=== PATIENT | male | born 1965 | race Caucasian/White ===

== ENCOUNTER → 2016-10-10 | Outpatient (CLI) | payer OTHER ==
[~2016-10-10] VITALS: Ht 182.9 cm; Wt 122.9 kg
[~2016-10-10] MED LIST: AMOXICILLIN875 MG PO; BACTRIM DS TAB1 EACH PO; BASAGLAR SC; CLINDAMYCIN HC300 MG PO; FENOFIBRATE160 MG PO; FLOMAX 0.4 MG0.4 MG PO; IBUPROFEN800 MG PO; KEFLEX500 MG PO; LANTUS SOL100 UNIT/1 SQ; LEVAQUIN750 MG PO; LISINOPRIL-HCT1 EAC2 PO; LOVENOX SY40 MG/0.4 SQ; METFORMIN HCL500 MG PO; NOVOLIN N100 UNIT/1 SQ; PERCOCET 10-321 EACH PO; PRAVASTATIN SOD40 MG PO; VITAMIN C 500500 MG PO; VITAMIN D250000 UNIT PO; ZOFRAN4 MG PO
[2016-10-10 10:04] LABS: HEMOGLOBIN 13.6 gm/dl (14.0-17.5); RED BLOOD COUNT 4.84 M/UL (4.20-5.50); WHITE BLOOD COUNT 7.1 K/UL (4.5-11.0)
[2016-10-10 10:24] LABS: BUN/CREATININE RATIO 27 (0-10)
== END ==
LOC: OPSV2 09:00
PROVIDERS: Orthopaedic Surgery
DX: Z01.812 Encounter for preprocedural laboratory examination (principal); E11.69 Type 2 diabetes mellitus with other specified complication; M86.9 Osteomyelitis, unspecified; Z79.84 Long term (current) use of oral hypoglycemic drugs
CPT/HCPCS: 36415; 80048; 85025

== ENCOUNTER → 2016-10-11 | Day surgery (SDC) | payer OTHER | END | disposition home or self-care (01) | LOC: UNDOADMIN 11:18 → ZOBSOF 11:18 → OR 11:41 → EDSTATUS 17:30 | PROVIDERS: Orthopaedic Surgery | PROC: 0Y6S0Z1 Detachment at Left 2nd Toe, High, Open Approach (ICD-10-PCS; principal; 2016-10-11 13:15) | DX: E11.69 Type 2 diabetes mellitus with other specified complication (principal); M86.8X7 Other osteomyelitis, ankle and foot; N40.0 Benign prostatic hyperplasia without lower urinary tract symptoms; M19.90 Unspecified osteoarthritis, unspecified site; Z87.891 Personal history of nicotine dependence; Z80.51 Family history of malignant neoplasm of kidney; Z82.49 Family history of ischemic heart disease and other diseases of the circulatory system; Z83.3 Family history of diabetes mellitus; Z79.1 Long term (current) use of non-steroidal anti-inflammatories (NSAID); Z79.4 Long term (current) use of insulin; Z79.899 Other long term (current) drug therapy; Z90.89 Acquired absence of other organs; Z89.412 Acquired absence of left great toe | CPT/HCPCS: 82962; J2250; J3010; J7030; J7120 ==

== ENCOUNTER 2017-04-03 08:57 | Day surgery (SDC) | payer OTHER ==
[~2017-04-03] VITALS: Ht 182.9 cm; Wt 117.0 kg
[~2017-04-03 08:57] MED LIST changes: -CLINDAMYCIN HC300 MG PO; -LOVENOX SY40 MG/0.4 SQ; -NOVOLIN N100 UNIT/1 SQ; -PERCOCET 10-321 EACH PO; -VITAMIN C 500500 MG PO; -ZOFRAN4 MG PO
[2017-04-03] MEDS ORDERED: NOVOLIN N100 UNIT/1 SQ (10:34)
[2017-04-04 08:52] LABS: BUN/CREATININE RATIO 20 (0-10)
[2017-04-04] MEDS ORDERED: LOVENOX SY40 MG/0.4 SQ (12:51)
[2017-04-04] MEDS ORDERED: VITAMIN C 500500 MG PO (12:52)
[2017-04-04] MEDS ORDERED: CLINDAMYCIN HC300 MG PO (12:53)
[2017-04-04] MEDS ORDERED: ZOFRAN4 MG PO (12:53)
[2017-04-04] MEDS ORDERED: PERCOCET 10-321 EACH PO (12:54)
== END 2017-04-04 14:50 | disposition home or self-care (01) ==
LOC: OR 08:57 → MED SURG 4 18:10 → OR 04-04 14:50
PROVIDERS: Emergency Medicine; Podiatrist Foot & Ankle Surgery
PROC: 0L8V0ZZ Division of Right Foot Tendon, Open Approach (ICD-10-PCS; 2017-04-03)
PROC: 0JBR0ZZ Excision of Left Foot Subcutaneous Tissue and Fascia, Open Approach (ICD-10-PCS; 2017-04-03)
PROC: 0QBL0ZZ Excision of Right Tarsal, Open Approach (ICD-10-PCS; principal; 2017-04-03 10:30)
PROC: 0SGK0KZ Fusion of Right Tarsometatarsal Joint with Nonautologous Tissue Substitute, Open Approach (ICD-10-PCS; 2017-04-03 10:30)
PROC: 0SGH0JZ Fusion of Right Tarsal Joint with Synthetic Substitute, Open Approach (ICD-10-PCS; 2017-04-03 10:30)
PROC: 0SGH0JZ Fusion of Right Tarsal Joint with Synthetic Substitute, Open Approach (ICD-10-PCS; 2017-04-03 10:30)
PROC: 0YQM0ZZ Repair Right Foot, Open Approach (ICD-10-PCS; 2017-04-03 10:30)
DX: M21.6X1 Other acquired deformities of right foot (principal); M21.961 Unspecified acquired deformity of right lower leg; M20.41 Other hammer toe(s) (acquired), right foot; L97.819 Non-pressure chronic ulcer of other part of right lower leg with unspecified severity; E11.40 Type 2 diabetes mellitus with diabetic neuropathy, unspecified; E11.9 Type 2 diabetes mellitus without complications; E11.42 Type 2 diabetes mellitus with diabetic polyneuropathy; M81.0 Age-related osteoporosis without current pathological fracture; I10 Essential (primary) hypertension; E55.9 Vitamin D deficiency, unspecified; E78.2 Mixed hyperlipidemia; Z87.891 Personal history of nicotine dependence; Z79.52 Long term (current) use of systemic steroids; Z79.899 Other long term (current) drug therapy
CPT/HCPCS: 36415; 73630; 76000; 80048; 82962; 87070; 87077; 87186; 87205; C1713; J0690; J1650; J1815; J2250; J2405; J2795; J3010; J3370; J7030; J7120

== ENCOUNTER → 2020-07-18 | Outpatient (CLI) | payer MEDICARE, OTHER ==
[~2020-07-18] VITALS: Ht 182.9 cm; Wt 103.9 kg
[~2020-07-18] MED LIST changes: +ASPIRIN EC81 MG PO; +ATORVASTATIN CA20 MG PO; +CLEOCIN HCL300 MG PO; +CLINDAMYCIN HC300 MG PO; +CLOPIDOGREL75 MG PO; +COZAAR 25MG TAB25 MG PO; +CUBICIN 500 MG500 MG IV; +FOSAMAX 10 MG T10 MG PO; +HUMALOG 10100 UNITS/ SC; +HYDROCHLOROTHIA25 MG PO; +LANTUS INS100 UTS/M1 SC; +LEVOFLOXACIN250 MG PO; +LOPRESSOR 25 MG25 MG PO; +LOVENOX SY40 MG/0.4 SQ; +METOPROLOL TART25 MG PO; +NICOTINE PATCH1 EAC1 TD; +NOVOLIN N100 UNIT/1 SQ; +NOVOLOG 10100 UNITS1 INJ; +NOVOLOG FL100 UNIT/1 INJ; +PANTOPRAZOLE SO40 MG PO; +PERCOCET 10-321 EACH PO; +PERCOCET 5/325 T1 EA PO; +PRAVACHOL40 MG PO; +PRINIVIL20 MG PO; +TRESIBA FL100 UNIT/1 SQ; +VANCOCIN IV 11000 MG IV; +VANCOMYCIN2 GM/5001 IV; +VITAMIN C 500500 MG PO; +ZOFRAN4 MG PO
[2020-07-18 11:47] LABS: BUN/CREATININE RATIO 31 (0-10)
== END ==
LOC: OPSV 09:00
PROVIDERS: Nurse Practitioner Family
DX: M86.9 Osteomyelitis, unspecified (principal); E11.621 Type 2 diabetes mellitus with foot ulcer; L97.522 Non-pressure chronic ulcer of other part of left foot with fat layer exposed; E11.618 Type 2 diabetes mellitus with other diabetic arthropathy
CPT/HCPCS: 80048; 82550; J0878

== ENCOUNTER → 2020-07-25 | Outpatient (CLI) | payer MEDICARE, OTHER ==
[2020-07-25 10:49] LABS: BUN/CREATININE RATIO 32 (0-10)
== END ==
LOC: OPSV 09:00
PROVIDERS: Nurse Practitioner Family
DX: M86.9 Osteomyelitis, unspecified (principal); E11.621 Type 2 diabetes mellitus with foot ulcer; L97.522 Non-pressure chronic ulcer of other part of left foot with fat layer exposed; E11.618 Type 2 diabetes mellitus with other diabetic arthropathy
CPT/HCPCS: 80048; 82550

== ENCOUNTER → 2020-07-28 | Outpatient (CLI) | payer MEDICARE, OTHER | LOC: WCC 08:22 | DX: E11.621 Type 2 diabetes mellitus with foot ulcer (principal); L97.515 Non-pressure chronic ulcer of other part of right foot with muscle involvement without evidence of necrosis; L97.522 Non-pressure chronic ulcer of other part of left foot with fat layer exposed; E11.618 Type 2 diabetes mellitus with other diabetic arthropathy; E11.51 Type 2 diabetes mellitus with diabetic peripheral angiopathy without gangrene; E11.69 Type 2 diabetes mellitus with other specified complication; M86.9 Osteomyelitis, unspecified; I10 Essential (primary) hypertension; I25.2 Old myocardial infarction; Z89.412 Acquired absence of left great toe; Z95.5 Presence of coronary angioplasty implant and graft; Z79.4 Long term (current) use of insulin ==

== ENCOUNTER 2020-08-02 16:21 | Inpatient (IN) | payer MEDICARE, OTHER ==
[~2020-08-02] VITALS: Ht 182.9 cm; Wt 111.1 kg
[2020-08-02 18:24] LABS: HEMOGLOBIN 12.6 gm/dl (14.0-17.5); RED BLOOD COUNT 4.68 M/UL (4.20-5.50); WHITE BLOOD COUNT 8.4 K/UL (4.5-11.0)
[2020-08-02 18:39] LABS: BUN/CREATININE RATIO 27 (0-10)
[2020-08-03 06:10] LABS: HEMOGLOBIN 11.7 gm/dl (14.0-17.5); RED BLOOD COUNT 4.22 M/UL (4.20-5.50)
[2020-08-03 06:25] LABS: WHITE BLOOD COUNT 5.7 K/UL (4.5-11.0)
[2020-08-03 07:24] LABS: BUN/CREATININE RATIO 20 (0-10)
[2020-08-03 08:13] LABS: ACINETOBACTER BAUMANNII Not Detected (Negative); CANDIDA ALBICANS Not Detected (Negative); CANDIDA KRUSEI Not Detected (Negative); CANDIDA TROPICALIS Not Detected (Negative); ENTEROCOCCUS Not Detected (Negative); ESCHERICHIA COLI Not Detected (Negative); HAEMOPHILUS INFLUENZAE Not Detected (Negative); KLEBSIELLA OXYTOCA Not Detected (Negative); KLEBSIELLA PNEUMONIAE Not Detected (Negative); KPC-CARBAPENEM-RESISTANCE GENE Not Detected (Negative); PROTEUS Not Detected (Negative); PSEUDOMONAS AERUGINOSA Not Detected (Negative); STAPHYLOCOCCUS Not Detected (Negative); STAPHYLOCOCCUS AUREUS Not Detected (Negative); STREP AGALACTIAE (GROUP B) Not Detected (Negative); STREP PYOGENES (GROUP A) Not Detected (Negative); STREPTOCOCCUS Not Detected (Negative); mecA (METHICILLIN RESIST GENE Not Detected (Negative); vanA/B (VANCOMYCIN RESIST GENE Not Detected (Negative)
[2020-08-03 09:36] LABS: SERRATIA MARCESANS DETECTED (Negative)
[2020-08-04 04:49] LABS: HEMOGLOBIN 11.2 gm/dl (14.0-17.5); RED BLOOD COUNT 4.15 M/UL (4.20-5.50)
[2020-08-04 04:57] LABS: WHITE BLOOD COUNT 3.7 K/UL (4.5-11.0)
[2020-08-04 05:09] LABS: BUN/CREATININE RATIO 22 (0-10)
[2020-08-05 05:29] LABS: HEMOGLOBIN 11.4 gm/dl (14.0-17.5); RED BLOOD COUNT 4.21 M/UL (4.20-5.50); WHITE BLOOD COUNT 4.4 K/UL (4.5-11.0)
[2020-08-05 05:39] LABS: BUN/CREATININE RATIO 18 (0-10)
[2020-08-06 05:24] LABS: HEMOGLOBIN 12.2 gm/dl (14.0-17.5); RED BLOOD COUNT 4.48 M/UL (4.20-5.50); WHITE BLOOD COUNT 5.1 K/UL (4.5-11.0)
[2020-08-06 05:48] LABS: BUN/CREATININE RATIO 20 (0-10)
--- NOTE | 2020-08-06 17:58 | NUR ---
08/05/20 1400 SPOKE WITH A JACKIE RN PER MD REQUEST RE: BLOOD DRAW FROM PICC LINE IN RIGHT UPPER ARM. SHE STATES SHE HAS NOT DRAWN ANY BLOOD FROM THE PICC LINE IN THE LAST 2 DAYS OF CARING FOR PATIENT. MADE AWARE
[2020-08-07 05:46] LABS: HEMOGLOBIN 10.9 gm/dl (14.0-17.5); RED BLOOD COUNT 4.05 M/UL (4.20-5.50); WHITE BLOOD COUNT 5.4 K/UL (4.5-11.0)
[2020-08-07 06:02] LABS: BUN/CREATININE RATIO 26 (0-10)
[2020-08-08] MEDS ORDERED: ASPIRIN EC81 MG PO (09:59)
== END 2020-08-08 14:06 | disposition home or self-care (01) | DRG 854 ==
LOC: ER1 16:21 → MED SURG 4 20:45 → CDU 20:45 → MED SURG 4 21:59
PROVIDERS: Family Medicine; Physician Assistant; Physician Assistant Medical; ADMIT Internal Medicine
PROC: 0QTN0ZZ Resection of Right Metatarsal, Open Approach (ICD-10-PCS; principal; 2020-08-06)
PROC: 0JBQ0ZZ Excision of Right Foot Subcutaneous Tissue and Fascia, Open Approach (ICD-10-PCS; 2020-08-06)
PROC: 0HRMXK3 Replacement of Right Foot Skin with Nonautologous Tissue Substitute, Full Thickness, External Approach (ICD-10-PCS; 2020-08-06)
PROC: 0HBRXZZ Excision of Toe Nail, External Approach (ICD-10-PCS; 2020-08-06)
PROC: 0HBRXZZ Excision of Toe Nail, External Approach (ICD-10-PCS; 2020-08-06)
PROC: 0HBRXZZ Excision of Toe Nail, External Approach (ICD-10-PCS; 2020-08-06)
PROC: 0HBRXZZ Excision of Toe Nail, External Approach (ICD-10-PCS; 2020-08-06)
PROC: 0HBRXZZ Excision of Toe Nail, External Approach (ICD-10-PCS; 2020-08-06)
DX: A41.53 Sepsis due to Serratia (principal); M86.171 Other acute osteomyelitis, right ankle and foot; E11.52 Type 2 diabetes mellitus with diabetic peripheral angiopathy with gangrene; I96 Gangrene, not elsewhere classified; L03.115 Cellulitis of right lower limb; Z20.822 Contact with and (suspected) exposure to COVID-19; E11.69 Type 2 diabetes mellitus with other specified complication; B96.89 Other specified bacterial agents as the cause of diseases classified elsewhere; E11.610 Type 2 diabetes mellitus with diabetic neuropathic arthropathy; I25.5 Ischemic cardiomyopathy; R91.1 Solitary pulmonary nodule; I25.10 Atherosclerotic heart disease of native coronary artery without angina pectoris; J44.9 Chronic obstructive pulmonary disease, unspecified; E11.40 Type 2 diabetes mellitus with diabetic neuropathy, unspecified; E66.01 Morbid (severe) obesity due to excess calories; Z68.33 Body mass index [BMI] 33.0-33.9, adult; Z87.891 Personal history of nicotine dependence; Z95.5 Presence of coronary angioplasty implant and graft; Z79.02 Long term (current) use of antithrombotics/antiplatelets; Z79.4 Long term (current) use of insulin; Z79.899 Other long term (current) drug therapy
CPT/HCPCS: 36415; 73630; 73721; 80048; 80053; 80202; 82550; 82962; 83605; 85025; 85027; 85652; 86140; 87040; 87070; 87077; 87150; 87186; 87205; 90471; 93005; 96365; 96366; 96367; 96372; 96375; 96376; 99285; C1713; J1100; J1335; J1650; J2001; J2250; J2405; J2543; J2704; J2765; J2795; J3010; J3260; J3370; J7030; J7070; J7120; Q4133; U0002

== ENCOUNTER → 2020-08-02 | Outpatient (CLI) | payer MEDICARE, OTHER | LOC: WCC 14:55 | PROC: 0KBV0ZZ Excision of Right Foot Muscle, Open Approach (ICD-10-PCS; principal; 2020-08-02) | DX: E11.621 Type 2 diabetes mellitus with foot ulcer (principal); L97.413 Non-pressure chronic ulcer of right heel and midfoot with necrosis of muscle; L97.522 Non-pressure chronic ulcer of other part of left foot with fat layer exposed; E11.52 Type 2 diabetes mellitus with diabetic peripheral angiopathy with gangrene; I96 Gangrene, not elsewhere classified; E11.618 Type 2 diabetes mellitus with other diabetic arthropathy; E11.40 Type 2 diabetes mellitus with diabetic neuropathy, unspecified; E11.69 Type 2 diabetes mellitus with other specified complication; M86.8X9 Other osteomyelitis, unspecified sites; I10 Essential (primary) hypertension; I25.2 Old myocardial infarction; M19.90 Unspecified osteoarthritis, unspecified site; R63.4 Abnormal weight loss; Z68.32 Body mass index [BMI] 32.0-32.9, adult; Z95.5 Presence of coronary angioplasty implant and graft; Z79.02 Long term (current) use of antithrombotics/antiplatelets; Z79.2 Long term (current) use of antibiotics; Z79.899 Other long term (current) drug therapy; Z89.412 Acquired absence of left great toe | CPT/HCPCS: 87070; 87077; 87186; 87205 ==

== ENCOUNTER → 2020-08-22 | Outpatient (CLI) | payer MEDICARE, OTHER ==
[2020-08-22 13:06] LABS: HEMOGLOBIN 14.5 gm/dl (14.0-17.5); RED BLOOD COUNT 5.19 M/UL (4.20-5.50); WHITE BLOOD COUNT 7.6 K/UL (4.5-11.0)
[2020-08-22 13:28] LABS: BUN/CREATININE RATIO 35 (0-10)
== END ==
LOC: OPSV 09:00
PROVIDERS: Podiatrist Foot & Ankle Surgery
DX: M86.179 Other acute osteomyelitis, unspecified ankle and foot (principal)
CPT/HCPCS: 80053; 85027; 85652; 86140

== ENCOUNTER → 2020-08-23 | Outpatient (CLI) | payer MEDICARE, OTHER | LOC: WCC 11:03 | DX: E11.621 Type 2 diabetes mellitus with foot ulcer (principal); L97.522 Non-pressure chronic ulcer of other part of left foot with fat layer exposed; E11.618 Type 2 diabetes mellitus with other diabetic arthropathy; I10 Essential (primary) hypertension; I73.9 Peripheral vascular disease, unspecified; M86.9 Osteomyelitis, unspecified | CPT/HCPCS: G0463 ==

== ENCOUNTER → 2020-08-30 | Outpatient (CLI) | payer MEDICARE, OTHER | LOC: WCC 08:59 | PROC: 0KBV0ZZ Excision of Right Foot Muscle, Open Approach (ICD-10-PCS; principal; 2020-08-30) | DX: E11.621 Type 2 diabetes mellitus with foot ulcer (principal); L97.515 Non-pressure chronic ulcer of other part of right foot with muscle involvement without evidence of necrosis; L97.412 Non-pressure chronic ulcer of right heel and midfoot with fat layer exposed; L97.522 Non-pressure chronic ulcer of other part of left foot with fat layer exposed; E11.618 Type 2 diabetes mellitus with other diabetic arthropathy; I10 Essential (primary) hypertension; I73.9 Peripheral vascular disease, unspecified; M86.9 Osteomyelitis, unspecified; Z79.899 Other long term (current) drug therapy | CPT/HCPCS: 36415; 80053; 85027; 85652; 86140 ==

== ENCOUNTER → 2020-09-12 | Outpatient (CLI) | payer MEDICARE, OTHER | LOC: WCC 08:00 | PROC: 0JBQ0ZZ Excision of Right Foot Subcutaneous Tissue and Fascia, Open Approach (ICD-10-PCS; principal; 2020-09-12) | PROC: 0HRMXJZ Replacement of Right Foot Skin with Synthetic Substitute, External Approach (ICD-10-PCS; 2020-09-12) | DX: E11.621 Type 2 diabetes mellitus with foot ulcer (principal); L97.412 Non-pressure chronic ulcer of right heel and midfoot with fat layer exposed; L97.513 Non-pressure chronic ulcer of other part of right foot with necrosis of muscle; E11.52 Type 2 diabetes mellitus with diabetic peripheral angiopathy with gangrene; I96 Gangrene, not elsewhere classified; E11.618 Type 2 diabetes mellitus with other diabetic arthropathy; E11.40 Type 2 diabetes mellitus with diabetic neuropathy, unspecified; E11.69 Type 2 diabetes mellitus with other specified complication; M86.8X9 Other osteomyelitis, unspecified sites; I10 Essential (primary) hypertension; I25.2 Old myocardial infarction; Z79.2 Long term (current) use of antibiotics; Z79.02 Long term (current) use of antithrombotics/antiplatelets; Z79.899 Other long term (current) drug therapy; Z89.421 Acquired absence of other right toe(s); Z95.5 Presence of coronary angioplasty implant and graft | CPT/HCPCS: 36415; 80053; 85027; 85652; 86140; G0463; Q4186 ==

== ENCOUNTER → 2020-09-12 | Outpatient (CLI) | payer MEDICARE, OTHER ==
[2020-09-12 10:01] LABS: HEMOGLOBIN 14.7 gm/dl (14.0-17.5); RED BLOOD COUNT 5.17 M/UL (4.20-5.50)
[2020-09-12 10:23] LABS: BUN/CREATININE RATIO 32 (0-10)
== END ==
LOC: OPSV 09-06 08:00
PROVIDERS: Nurse Practitioner Family
DX: M86.8X7 Other osteomyelitis, ankle and foot (principal)
CPT/HCPCS: 36415; 80053; 85027; 85652; 86140; G0463

== ENCOUNTER → 2020-09-19 | Outpatient (CLI) | payer MEDICARE, OTHER | LOC: WCC 08:29 | PROC: 0HRMXJZ Replacement of Right Foot Skin with Synthetic Substitute, External Approach (ICD-10-PCS; principal; 2020-09-19) | DX: E11.621 Type 2 diabetes mellitus with foot ulcer (principal); L97.513 Non-pressure chronic ulcer of other part of right foot with necrosis of muscle; L97.411 Non-pressure chronic ulcer of right heel and midfoot limited to breakdown of skin; E11.52 Type 2 diabetes mellitus with diabetic peripheral angiopathy with gangrene; I96 Gangrene, not elsewhere classified; E11.69 Type 2 diabetes mellitus with other specified complication; M86.8X9 Other osteomyelitis, unspecified sites; E11.618 Type 2 diabetes mellitus with other diabetic arthropathy; I10 Essential (primary) hypertension; I25.2 Old myocardial infarction; M19.90 Unspecified osteoarthritis, unspecified site; E11.40 Type 2 diabetes mellitus with diabetic neuropathy, unspecified; Z89.422 Acquired absence of other left toe(s); Z95.5 Presence of coronary angioplasty implant and graft; Z79.2 Long term (current) use of antibiotics; Z79.02 Long term (current) use of antithrombotics/antiplatelets; Z79.899 Other long term (current) drug therapy | CPT/HCPCS: 36415; 80053; 85025; 85652; 86140; 97597; Q4186 ==

== ENCOUNTER → 2020-09-20 | Outpatient (CLI) | payer MEDICARE, OTHER | LOC: WCC 10:00 | DX: E11.621 Type 2 diabetes mellitus with foot ulcer (principal); L97.515 Non-pressure chronic ulcer of other part of right foot with muscle involvement without evidence of necrosis; L97.412 Non-pressure chronic ulcer of right heel and midfoot with fat layer exposed; E11.618 Type 2 diabetes mellitus with other diabetic arthropathy; I10 Essential (primary) hypertension; E11.51 Type 2 diabetes mellitus with diabetic peripheral angiopathy without gangrene; E11.40 Type 2 diabetes mellitus with diabetic neuropathy, unspecified; E11.69 Type 2 diabetes mellitus with other specified complication; M86.9 Osteomyelitis, unspecified; I25.2 Old myocardial infarction; Z89.422 Acquired absence of other left toe(s); Z79.4 Long term (current) use of insulin; Z79.02 Long term (current) use of antithrombotics/antiplatelets; Z79.2 Long term (current) use of antibiotics; Z79.899 Other long term (current) drug therapy | CPT/HCPCS: Q4186 ==

== ENCOUNTER → 2020-09-26 | Outpatient (CLI) | payer MEDICARE, OTHER | LOC: OPSV 09:00 | DX: M86.9 Osteomyelitis, unspecified (principal) | CPT/HCPCS: G0463 ==

== ENCOUNTER → 2020-09-27 | Outpatient (CLI) | payer MEDICARE, OTHER | LOC: WCC 09:00 | DX: E11.621 Type 2 diabetes mellitus with foot ulcer (principal); E11.618 Type 2 diabetes mellitus with other diabetic arthropathy; I73.9 Peripheral vascular disease, unspecified; I10 Essential (primary) hypertension; M86.9 Osteomyelitis, unspecified ==

== ENCOUNTER → 2020-10-05 | Outpatient (CLI) | payer MEDICARE, OTHER | LOC: OPSV 10-03 09:00 | DX: Z00.00 Encounter for general adult medical examination without abnormal findings (principal); M86.9 Osteomyelitis, unspecified | CPT/HCPCS: 85652; 86140; 87070; 87077; 87186; 87205; Q4186 ==

== ENCOUNTER → 2020-10-10 | Outpatient (CLI) | payer MEDICARE, OTHER | LOC: KOH-I 10:37 | DX: M79.671 Pain in right foot (principal) | CPT/HCPCS: 73630; G0463 ==

== ENCOUNTER 2020-10-11 11:28 | Inpatient (IN) | payer MEDICARE, OTHER ==
[~2020-10-11] VITALS: Ht 182.9 cm; Wt 115.7 kg
[2020-10-11 16:49] LABS: HEMOGLOBIN 12.6 gm/dl (14.0-17.5); RED BLOOD COUNT 4.45 M/UL (4.20-5.50); WHITE BLOOD COUNT 7.6 K/UL (4.5-11.0)
[2020-10-11 17:10] LABS: BUN/CREATININE RATIO 29 (0-10)
[2020-10-12 04:42] LABS: RED BLOOD COUNT 4.26 M/UL (4.20-5.50); WHITE BLOOD COUNT 6.5 K/UL (4.5-11.0)
[2020-10-12 04:56] LABS: BUN/CREATININE RATIO 22 (0-10)
== END 2020-10-14 17:46 | disposition home or self-care (01) | DRG 617 ==
LOC: M/S 12:58
PROVIDERS: Physician Assistant; Podiatrist Foot & Ankle Surgery; ADMIT Internal Medicine
PROC: 02HV33Z Insertion of Infusion Device into Superior Vena Cava, Percutaneous Approach (ICD-10-PCS; 2020-10-11)
PROC: 0QBN0ZZ Excision of Right Metatarsal, Open Approach (ICD-10-PCS; 2020-10-12)
PROC: 0HRMXK4 Replacement of Right Foot Skin with Nonautologous Tissue Substitute, Partial Thickness, External Approach (ICD-10-PCS; 2020-10-12)
PROC: 0QHY0MZ Insertion of Bone Growth Stimulator into Lower Bone, Open Approach (ICD-10-PCS; 2020-10-12)
PROC: 0HXMXZZ Transfer Right Foot Skin, External Approach (ICD-10-PCS; 2020-10-12)
PROC: 0JBQ0ZZ Excision of Right Foot Subcutaneous Tissue and Fascia, Open Approach (ICD-10-PCS; 2020-10-12)
PROC: 0Y6X0Z0 Detachment at Right 5th Toe, Complete, Open Approach (ICD-10-PCS; principal; 2020-10-12 14:41)
DX: E11.69 Type 2 diabetes mellitus with other specified complication (principal); E11.52 Type 2 diabetes mellitus with diabetic peripheral angiopathy with gangrene; M86.8X7 Other osteomyelitis, ankle and foot; I96 Gangrene, not elsewhere classified; I50.20 Unspecified systolic (congestive) heart failure; E11.610 Type 2 diabetes mellitus with diabetic neuropathic arthropathy; I25.5 Ischemic cardiomyopathy; Z79.4 Long term (current) use of insulin; I11.0 Hypertensive heart disease with heart failure; E11.621 Type 2 diabetes mellitus with foot ulcer; L97.519 Non-pressure chronic ulcer of other part of right foot with unspecified severity; B95.2 Enterococcus as the cause of diseases classified elsewhere; Z20.822 Contact with and (suspected) exposure to COVID-19; E78.5 Hyperlipidemia, unspecified; I25.2 Old myocardial infarction; I25.10 Atherosclerotic heart disease of native coronary artery without angina pectoris; Z98.890 Other specified postprocedural states; Z87.891 Personal history of nicotine dependence; Z83.3 Family history of diabetes mellitus; Z82.49 Family history of ischemic heart disease and other diseases of the circulatory system; Z82.3 Family history of stroke
CPT/HCPCS: ECHO; 36415; 71045; 73620; 73630; 76000; 80048; 80053; 80202; 82962; 85025; 85610; 87070; 87077; 87186; 87205; 93005; 93306; C1713; G0463; J1335; J1580; J2250; J2405; J2543; J2704; J2795; J3010; J3370; J7070; J7120; Q4133; U0002

== ENCOUNTER → 2020-10-20 | Outpatient (CLI) | payer MEDICARE, OTHER | LOC: WCC 13:30 | PROC: 0KBV0ZZ Excision of Right Foot Muscle, Open Approach (ICD-10-PCS; principal; 2020-10-20) | DX: E11.621 Type 2 diabetes mellitus with foot ulcer (principal); L97.513 Non-pressure chronic ulcer of other part of right foot with necrosis of muscle; L97.411 Non-pressure chronic ulcer of right heel and midfoot limited to breakdown of skin; E11.52 Type 2 diabetes mellitus with diabetic peripheral angiopathy with gangrene; I96 Gangrene, not elsewhere classified; E11.618 Type 2 diabetes mellitus with other diabetic arthropathy; E11.69 Type 2 diabetes mellitus with other specified complication; M86.8X9 Other osteomyelitis, unspecified sites; I25.2 Old myocardial infarction; M19.90 Unspecified osteoarthritis, unspecified site; E11.40 Type 2 diabetes mellitus with diabetic neuropathy, unspecified; I10 Essential (primary) hypertension; Z79.02 Long term (current) use of antithrombotics/antiplatelets; Z79.2 Long term (current) use of antibiotics; Z79.899 Other long term (current) drug therapy ==

== ENCOUNTER → 2020-10-25 | Outpatient (CLI) | payer MEDICARE, OTHER | LOC: OPSV 12:00 | DX: Z45.2 Encounter for adjustment and management of vascular access device (principal) | CPT/HCPCS: G0463 ==

== ENCOUNTER → 2020-10-27 | Outpatient (CLI) | payer MEDICARE, OTHER | LOC: WCC 10:15 | DX: E11.621 Type 2 diabetes mellitus with foot ulcer (principal); E11.618 Type 2 diabetes mellitus with other diabetic arthropathy; L97.522 Non-pressure chronic ulcer of other part of left foot with fat layer exposed; I73.9 Peripheral vascular disease, unspecified; I10 Essential (primary) hypertension; M86.9 Osteomyelitis, unspecified | CPT/HCPCS: 97597 ==

== ENCOUNTER → 2020-10-31 | Outpatient (CLI) | payer MEDICARE, OTHER ==
[~2020-10-31] VITALS: Ht 182.9 cm; Wt 103.9 kg
== END ==
LOC: OPSV 09:00
DX: Z45.2 Encounter for adjustment and management of vascular access device (principal)
CPT/HCPCS: G0463

== ENCOUNTER → 2020-11-03 | Outpatient (CLI) | payer MEDICARE, OTHER | LOC: WCC 13:30 → US 13:38 → WCC 13:38 | DX: L97.522 Non-pressure chronic ulcer of other part of left foot with fat layer exposed (principal); E11.621 Type 2 diabetes mellitus with foot ulcer; E11.618 Type 2 diabetes mellitus with other diabetic arthropathy; I10 Essential (primary) hypertension; I73.9 Peripheral vascular disease, unspecified; M86.9 Osteomyelitis, unspecified | CPT/HCPCS: 87070; 87205; 93925; 93970 ==

== ENCOUNTER → 2020-11-07 | Outpatient (CLI) | payer MEDICARE, OTHER | LOC: OPSV 08:52 | DX: M86.9 Osteomyelitis, unspecified (principal) | CPT/HCPCS: G0463 ==

== ENCOUNTER → 2020-11-10 | Outpatient (CLI) | payer MEDICARE, OTHER | LOC: WCC 13:30 | DX: E11.621 Type 2 diabetes mellitus with foot ulcer (principal); L97.513 Non-pressure chronic ulcer of other part of right foot with necrosis of muscle; L97.522 Non-pressure chronic ulcer of other part of left foot with fat layer exposed; E11.618 Type 2 diabetes mellitus with other diabetic arthropathy; E11.51 Type 2 diabetes mellitus with diabetic peripheral angiopathy without gangrene; E11.69 Type 2 diabetes mellitus with other specified complication; M86.9 Osteomyelitis, unspecified; I10 Essential (primary) hypertension; I25.2 Old myocardial infarction; Z79.02 Long term (current) use of antithrombotics/antiplatelets; Z95.5 Presence of coronary angioplasty implant and graft; Z89.412 Acquired absence of left great toe; Z86.14 Personal history of Methicillin resistant Staphylococcus aureus infection | CPT/HCPCS: 87070; 87205 ==

== ENCOUNTER → 2020-11-14 | Outpatient (CLI) | payer MEDICARE, OTHER | LOC: OPSV 09:00 | DX: M86.9 Osteomyelitis, unspecified (principal) | CPT/HCPCS: G0463 ==

== ENCOUNTER → 2020-11-17 | Outpatient (CLI) | payer MEDICARE, OTHER | LOC: WCC 11:30 | DX: E11.621 Type 2 diabetes mellitus with foot ulcer (principal); L97.516 Non-pressure chronic ulcer of other part of right foot with bone involvement without evidence of necrosis; E11.51 Type 2 diabetes mellitus with diabetic peripheral angiopathy without gangrene; I10 Essential (primary) hypertension; E11.69 Type 2 diabetes mellitus with other specified complication; M86.9 Osteomyelitis, unspecified | CPT/HCPCS: 73718; 87070; 87205 ==

== ENCOUNTER → 2020-11-18 | Outpatient (CLI) | payer MEDICARE, OTHER | LOC: LAB 10:33 → OPSV 10:33 | DX: E11.621 Type 2 diabetes mellitus with foot ulcer (principal) | CPT/HCPCS: 36415; 83036 ==

== ENCOUNTER → 2020-11-24 | Outpatient (CLI) | payer MEDICARE, OTHER | LOC: WCC 13:00 | DX: E11.621 Type 2 diabetes mellitus with foot ulcer (principal); L97.516 Non-pressure chronic ulcer of other part of right foot with bone involvement without evidence of necrosis; E11.618 Type 2 diabetes mellitus with other diabetic arthropathy; E11.51 Type 2 diabetes mellitus with diabetic peripheral angiopathy without gangrene; E11.69 Type 2 diabetes mellitus with other specified complication; M86.671 Other chronic osteomyelitis, right ankle and foot; I10 Essential (primary) hypertension; Z79.2 Long term (current) use of antibiotics; Z79.4 Long term (current) use of insulin; Z79.891 Long term (current) use of opiate analgesic; Z79.02 Long term (current) use of antithrombotics/antiplatelets; Z79.899 Other long term (current) drug therapy | CPT/HCPCS: 87070; 87077; 87186; 87205 ==

== ENCOUNTER → 2020-11-28 | Outpatient (CLI) | payer MEDICARE, OTHER | LOC: WCC 08:00 | DX: E11.621 Type 2 diabetes mellitus with foot ulcer (principal); E11.618 Type 2 diabetes mellitus with other diabetic arthropathy; I10 Essential (primary) hypertension; I73.9 Peripheral vascular disease, unspecified; M86.671 Other chronic osteomyelitis, right ankle and foot; L97.516 Non-pressure chronic ulcer of other part of right foot with bone involvement without evidence of necrosis; E11.42 Type 2 diabetes mellitus with diabetic polyneuropathy | CPT/HCPCS: 81003; 82962; G0463 ==

== ENCOUNTER → 2020-11-28 | Outpatient (CLI) | payer MEDICARE, OTHER | LOC: OPSV 11-21 09:00 | DX: Z45.2 Encounter for adjustment and management of vascular access device (principal); M86.9 Osteomyelitis, unspecified | CPT/HCPCS: G0463 ==

== ENCOUNTER → 2020-11-30 | Day surgery (SDC) | payer MEDICARE, OTHER | END | disposition home or self-care (01) | LOC: OR 09:08 | DX: T84.7XXA Infection and inflammatory reaction due to other internal orthopedic prosthetic devices, implants and grafts, initial encounter (principal); E11.69 Type 2 diabetes mellitus with other specified complication; M86.671 Other chronic osteomyelitis, right ankle and foot; E11.65 Type 2 diabetes mellitus with hyperglycemia; E11.42 Type 2 diabetes mellitus with diabetic polyneuropathy; E11.610 Type 2 diabetes mellitus with diabetic neuropathic arthropathy; E78.5 Hyperlipidemia, unspecified; I10 Essential (primary) hypertension; I25.10 Atherosclerotic heart disease of native coronary artery without angina pectoris; E66.01 Morbid (severe) obesity due to excess calories; Z95.5 Presence of coronary angioplasty implant and graft; Z87.891 Personal history of nicotine dependence; Z89.421 Acquired absence of other right toe(s); Z79.82 Long term (current) use of aspirin; Z79.02 Long term (current) use of antithrombotics/antiplatelets; Z79.4 Long term (current) use of insulin; Z79.899 Other long term (current) drug therapy; Z20.822 Contact with and (suspected) exposure to COVID-19 | CPT/HCPCS: 73630; 76000; 82962; 87070; J1100; J2001; J2250; J2405; J2704; J3010; J7030; J7120; U0002 ==

== ENCOUNTER → 2020-12-06 | Outpatient (CLI) | payer MEDICARE, OTHER | LOC: OPSV 10:00 | DX: M86.9 Osteomyelitis, unspecified (principal) | CPT/HCPCS: G0463 ==

== ENCOUNTER → 2020-12-13 | Outpatient (CLI) | payer MEDICARE, OTHER | LOC: OPSV 10:00 | DX: M86.9 Osteomyelitis, unspecified (principal); Z45.2 Encounter for adjustment and management of vascular access device | CPT/HCPCS: G0463 ==

== ENCOUNTER → 2020-12-15 | Outpatient (CLI) | payer MEDICARE, OTHER | LOC: WCC 10:00 | DX: E11.621 Type 2 diabetes mellitus with foot ulcer (principal); L97.515 Non-pressure chronic ulcer of other part of right foot with muscle involvement without evidence of necrosis; L97.516 Non-pressure chronic ulcer of other part of right foot with bone involvement without evidence of necrosis; E11.618 Type 2 diabetes mellitus with other diabetic arthropathy; I10 Essential (primary) hypertension; E11.51 Type 2 diabetes mellitus with diabetic peripheral angiopathy without gangrene; E11.69 Type 2 diabetes mellitus with other specified complication; M86.671 Other chronic osteomyelitis, right ankle and foot; Z79.4 Long term (current) use of insulin; Z89.422 Acquired absence of other left toe(s) ==

== ENCOUNTER → 2020-12-22 | Outpatient (CLI) | payer MEDICARE, OTHER | LOC: WCC 10:03 | PROC: 0JBQ0ZZ Excision of Right Foot Subcutaneous Tissue and Fascia, Open Approach (ICD-10-PCS; principal; 2020-12-22) | DX: E11.621 Type 2 diabetes mellitus with foot ulcer (principal); L97.514 Non-pressure chronic ulcer of other part of right foot with necrosis of bone; E11.52 Type 2 diabetes mellitus with diabetic peripheral angiopathy with gangrene; I10 Essential (primary) hypertension; E11.618 Type 2 diabetes mellitus with other diabetic arthropathy; E11.69 Type 2 diabetes mellitus with other specified complication; I25.2 Old myocardial infarction; M19.90 Unspecified osteoarthritis, unspecified site; E11.40 Type 2 diabetes mellitus with diabetic neuropathy, unspecified; M86.671 Other chronic osteomyelitis, right ankle and foot; Z79.02 Long term (current) use of antithrombotics/antiplatelets; Z79.891 Long term (current) use of opiate analgesic; Z79.4 Long term (current) use of insulin; Z79.899 Other long term (current) drug therapy ==

== ENCOUNTER → 2020-12-30 | Outpatient (CLI) | payer MEDICARE, OTHER | LOC: WCC 08:36 | DX: E11.621 Type 2 diabetes mellitus with foot ulcer (principal); L97.515 Non-pressure chronic ulcer of other part of right foot with muscle involvement without evidence of necrosis; E11.618 Type 2 diabetes mellitus with other diabetic arthropathy; I10 Essential (primary) hypertension; E11.51 Type 2 diabetes mellitus with diabetic peripheral angiopathy without gangrene; E11.69 Type 2 diabetes mellitus with other specified complication; M86.671 Other chronic osteomyelitis, right ankle and foot; Z89.412 Acquired absence of left great toe; Z79.02 Long term (current) use of antithrombotics/antiplatelets; Z79.4 Long term (current) use of insulin; Z79.891 Long term (current) use of opiate analgesic; Z79.899 Other long term (current) drug therapy ==

== ENCOUNTER → 2021-01-06 | Outpatient (CLI) | payer MEDICARE, OTHER | LOC: WCC 08:15 | DX: E11.621 Type 2 diabetes mellitus with foot ulcer (principal); L97.512 Non-pressure chronic ulcer of other part of right foot with fat layer exposed; E11.618 Type 2 diabetes mellitus with other diabetic arthropathy; I10 Essential (primary) hypertension; E11.51 Type 2 diabetes mellitus with diabetic peripheral angiopathy without gangrene; E11.69 Type 2 diabetes mellitus with other specified complication; M86.671 Other chronic osteomyelitis, right ankle and foot; Z79.02 Long term (current) use of antithrombotics/antiplatelets; Z79.891 Long term (current) use of opiate analgesic; Z79.4 Long term (current) use of insulin; Z79.899 Other long term (current) drug therapy ==

== ENCOUNTER → 2021-01-13 | Outpatient (CLI) | payer MEDICARE, OTHER | LOC: WCC 08:30 | DX: E11.621 Type 2 diabetes mellitus with foot ulcer (principal); L97.516 Non-pressure chronic ulcer of other part of right foot with bone involvement without evidence of necrosis; E11.618 Type 2 diabetes mellitus with other diabetic arthropathy; I10 Essential (primary) hypertension; I73.9 Peripheral vascular disease, unspecified; M86.671 Other chronic osteomyelitis, right ankle and foot; Z79.899 Other long term (current) drug therapy; Z79.84 Long term (current) use of oral hypoglycemic drugs ==

== ENCOUNTER → 2021-01-18 | Outpatient (CLI) | payer MEDICARE, OTHER | LOC: WCC 10:00 | PROC: 0KBV0ZZ Excision of Right Foot Muscle, Open Approach (ICD-10-PCS; principal; 2021-01-18) | DX: E11.621 Type 2 diabetes mellitus with foot ulcer (principal); L97.412 Non-pressure chronic ulcer of right heel and midfoot with fat layer exposed; L97.513 Non-pressure chronic ulcer of other part of right foot with necrosis of muscle; E11.52 Type 2 diabetes mellitus with diabetic peripheral angiopathy with gangrene; I96 Gangrene, not elsewhere classified; E11.69 Type 2 diabetes mellitus with other specified complication; M86.671 Other chronic osteomyelitis, right ankle and foot; E11.618 Type 2 diabetes mellitus with other diabetic arthropathy; I25.2 Old myocardial infarction; M19.90 Unspecified osteoarthritis, unspecified site; I10 Essential (primary) hypertension; Z79.2 Long term (current) use of antibiotics; Z79.4 Long term (current) use of insulin; Z79.02 Long term (current) use of antithrombotics/antiplatelets; Z79.891 Long term (current) use of opiate analgesic; Z79.51 Long term (current) use of inhaled steroids; Z79.899 Other long term (current) drug therapy ==

== ENCOUNTER → 2021-01-18 | Outpatient (CLI) | payer MEDICARE, OTHER | LOC: DTC 07:44 | DX: E11.65 Type 2 diabetes mellitus with hyperglycemia (principal) | CPT/HCPCS: G0108 ==

== ENCOUNTER → 2021-01-19 | Outpatient (CLI) | payer MEDICARE, OTHER | LOC: CT 12-28 10:30 → KOH-I 12-28 14:30 → CT 08:03 | DX: E11.621 Type 2 diabetes mellitus with foot ulcer (principal); E11.618 Type 2 diabetes mellitus with other diabetic arthropathy; I73.9 Peripheral vascular disease, unspecified; M86.671 Other chronic osteomyelitis, right ankle and foot; L97.516 Non-pressure chronic ulcer of other part of right foot with bone involvement without evidence of necrosis; I10 Essential (primary) hypertension | CPT/HCPCS: 82962 ==

== ENCOUNTER → 2021-01-27 | Outpatient (CLI) | payer MEDICARE, OTHER | LOC: WCC 10:23 | DX: E11.621 Type 2 diabetes mellitus with foot ulcer (principal); L97.512 Non-pressure chronic ulcer of other part of right foot with fat layer exposed; L97.412 Non-pressure chronic ulcer of right heel and midfoot with fat layer exposed; E11.618 Type 2 diabetes mellitus with other diabetic arthropathy; I10 Essential (primary) hypertension; E11.51 Type 2 diabetes mellitus with diabetic peripheral angiopathy without gangrene; E11.69 Type 2 diabetes mellitus with other specified complication; M86.671 Other chronic osteomyelitis, right ankle and foot; Z79.891 Long term (current) use of opiate analgesic; Z79.4 Long term (current) use of insulin; Z79.02 Long term (current) use of antithrombotics/antiplatelets; Z79.899 Other long term (current) drug therapy ==

== ENCOUNTER → 2021-02-01 | Outpatient (CLI) | payer MEDICARE, OTHER | LOC: WCC 09:52 | DX: E11.621 Type 2 diabetes mellitus with foot ulcer (principal); L97.512 Non-pressure chronic ulcer of other part of right foot with fat layer exposed; L97.411 Non-pressure chronic ulcer of right heel and midfoot limited to breakdown of skin; E11.618 Type 2 diabetes mellitus with other diabetic arthropathy; E11.51 Type 2 diabetes mellitus with diabetic peripheral angiopathy without gangrene; E11.69 Type 2 diabetes mellitus with other specified complication; M86.671 Other chronic osteomyelitis, right ankle and foot; I10 Essential (primary) hypertension; Z79.4 Long term (current) use of insulin; Z79.891 Long term (current) use of opiate analgesic; Z79.02 Long term (current) use of antithrombotics/antiplatelets; Z79.899 Other long term (current) drug therapy | CPT/HCPCS: G0277 ==

== ENCOUNTER → 2021-02-09 | Outpatient (CLI) | payer MEDICARE, OTHER | LOC: KOH-I 02-03 11:00 | DX: Z87.891 Personal history of nicotine dependence (principal); R91.1 Solitary pulmonary nodule | CPT/HCPCS: 71271 ==

== ENCOUNTER → 2021-02-09 | Outpatient (CLI) | payer MEDICARE, OTHER | LOC: KOH-I 02-08 10:30 → US 02-08 10:30 | DX: I10 Essential (primary) hypertension (principal); E11.65 Type 2 diabetes mellitus with hyperglycemia ==

== ENCOUNTER → 2021-02-15 | Outpatient (CLI) | payer MEDICARE, OTHER | LOC: WCC 09:21 | DX: E11.621 Type 2 diabetes mellitus with foot ulcer (principal); L97.512 Non-pressure chronic ulcer of other part of right foot with fat layer exposed; E11.69 Type 2 diabetes mellitus with other specified complication; Z79.4 Long term (current) use of insulin; E11.51 Type 2 diabetes mellitus with diabetic peripheral angiopathy without gangrene; I10 Essential (primary) hypertension; M86.671 Other chronic osteomyelitis, right ankle and foot; E11.618 Type 2 diabetes mellitus with other diabetic arthropathy ==

== ENCOUNTER → 2021-03-01 | Outpatient (CLI) | payer MEDICARE, OTHER | LOC: WCC 10:00 | DX: E11.621 Type 2 diabetes mellitus with foot ulcer (principal); L97.516 Non-pressure chronic ulcer of other part of right foot with bone involvement without evidence of necrosis; L97.511 Non-pressure chronic ulcer of other part of right foot limited to breakdown of skin; E11.618 Type 2 diabetes mellitus with other diabetic arthropathy; E11.69 Type 2 diabetes mellitus with other specified complication; M86.671 Other chronic osteomyelitis, right ankle and foot; Z79.4 Long term (current) use of insulin; I10 Essential (primary) hypertension; E11.51 Type 2 diabetes mellitus with diabetic peripheral angiopathy without gangrene | CPT/HCPCS: 87070; 87077; 87186; 87205; 97597 ==

== ENCOUNTER → 2021-03-06 | Outpatient (CLI) | payer MEDICARE, OTHER | LOC: RAD 10:51 | DX: E11.621 Type 2 diabetes mellitus with foot ulcer (principal); E11.618 Type 2 diabetes mellitus with other diabetic arthropathy; I10 Essential (primary) hypertension; I73.9 Peripheral vascular disease, unspecified; M86.671 Other chronic osteomyelitis, right ankle and foot; L97.516 Non-pressure chronic ulcer of other part of right foot with bone involvement without evidence of necrosis; M19.071 Primary osteoarthritis, right ankle and foot | CPT/HCPCS: 73630 ==

== ENCOUNTER → 2021-03-08 | Outpatient (CLI) | payer MEDICARE, OTHER | LOC: WCC 10:08 | DX: E11.621 Type 2 diabetes mellitus with foot ulcer (principal); Z79.4 Long term (current) use of insulin; E11.618 Type 2 diabetes mellitus with other diabetic arthropathy; I10 Essential (primary) hypertension; E11.51 Type 2 diabetes mellitus with diabetic peripheral angiopathy without gangrene; M86.671 Other chronic osteomyelitis, right ankle and foot; L97.511 Non-pressure chronic ulcer of other part of right foot limited to breakdown of skin; L97.515 Non-pressure chronic ulcer of other part of right foot with muscle involvement without evidence of necrosis; E11.69 Type 2 diabetes mellitus with other specified complication | CPT/HCPCS: 97597 ==

== ENCOUNTER → 2021-03-09 | Outpatient (CLI) | payer MEDICARE, OTHER | LOC: EMI 16:02 | DX: E11.621 Type 2 diabetes mellitus with foot ulcer (principal); L97.516 Non-pressure chronic ulcer of other part of right foot with bone involvement without evidence of necrosis; E11.618 Type 2 diabetes mellitus with other diabetic arthropathy; M86.671 Other chronic osteomyelitis, right ankle and foot; I10 Essential (primary) hypertension; I73.9 Peripheral vascular disease, unspecified; Z98.890 Other specified postprocedural states | CPT/HCPCS: 73718 ==

== ENCOUNTER → 2021-03-30 | Outpatient (CLI) | payer MEDICARE, OTHER | LOC: WCC 13:20 | DX: E11.621 Type 2 diabetes mellitus with foot ulcer (principal); L97.415 Non-pressure chronic ulcer of right heel and midfoot with muscle involvement without evidence of necrosis; E11.618 Type 2 diabetes mellitus with other diabetic arthropathy; E11.51 Type 2 diabetes mellitus with diabetic peripheral angiopathy without gangrene; E11.69 Type 2 diabetes mellitus with other specified complication; M86.671 Other chronic osteomyelitis, right ankle and foot; I10 Essential (primary) hypertension; I25.2 Old myocardial infarction; Z79.4 Long term (current) use of insulin; Z79.899 Other long term (current) drug therapy ==

== ENCOUNTER → 2021-04-05 | Outpatient (CLI) | payer MEDICARE, OTHER | LOC: WCC 09:46 | DX: E11.621 Type 2 diabetes mellitus with foot ulcer (principal); L97.412 Non-pressure chronic ulcer of right heel and midfoot with fat layer exposed; E11.69 Type 2 diabetes mellitus with other specified complication; M86.671 Other chronic osteomyelitis, right ankle and foot; E11.618 Type 2 diabetes mellitus with other diabetic arthropathy; E11.51 Type 2 diabetes mellitus with diabetic peripheral angiopathy without gangrene; I25.2 Old myocardial infarction; I10 Essential (primary) hypertension; Z79.4 Long term (current) use of insulin; Z79.899 Other long term (current) drug therapy ==

== ENCOUNTER → 2021-04-14 | Outpatient (CLI) | payer MEDICARE, OTHER | LOC: WCC 08:06 | DX: E11.621 Type 2 diabetes mellitus with foot ulcer (principal); E11.69 Type 2 diabetes mellitus with other specified complication; Z79.4 Long term (current) use of insulin; E11.618 Type 2 diabetes mellitus with other diabetic arthropathy; I10 Essential (primary) hypertension; E11.51 Type 2 diabetes mellitus with diabetic peripheral angiopathy without gangrene; M86.671 Other chronic osteomyelitis, right ankle and foot ==

== ENCOUNTER → 2021-04-21 | Outpatient (CLI) | payer MEDICARE, OTHER | LOC: WCC 08:00 | DX: E11.621 Type 2 diabetes mellitus with foot ulcer (principal); L97.412 Non-pressure chronic ulcer of right heel and midfoot with fat layer exposed; E11.618 Type 2 diabetes mellitus with other diabetic arthropathy; E11.51 Type 2 diabetes mellitus with diabetic peripheral angiopathy without gangrene; E11.69 Type 2 diabetes mellitus with other specified complication; M86.671 Other chronic osteomyelitis, right ankle and foot; I10 Essential (primary) hypertension; Z79.4 Long term (current) use of insulin; Z79.899 Other long term (current) drug therapy ==

== ENCOUNTER → 2021-04-28 | Outpatient (CLI) | payer MEDICARE, OTHER | END | disposition home or self-care (01) | LOC: WCC 07:42 | DX: E11.621 Type 2 diabetes mellitus with foot ulcer (principal); L97.412 Non-pressure chronic ulcer of right heel and midfoot with fat layer exposed; I21.4 Non-ST elevation (NSTEMI) myocardial infarction; Z95.5 Presence of coronary angioplasty implant and graft; E11.69 Type 2 diabetes mellitus with other specified complication; M86.671 Other chronic osteomyelitis, right ankle and foot; Z89.429 Acquired absence of other toe(s), unspecified side; Z79.84 Long term (current) use of oral hypoglycemic drugs; Z79.4 Long term (current) use of insulin; E11.610 Type 2 diabetes mellitus with diabetic neuropathic arthropathy; I10 Essential (primary) hypertension; E11.51 Type 2 diabetes mellitus with diabetic peripheral angiopathy without gangrene ==

== ENCOUNTER → 2021-05-12 | Outpatient (CLI) | payer MEDICARE, OTHER | LOC: WCC 01:44 | DX: E11.621 Type 2 diabetes mellitus with foot ulcer (principal); L97.412 Non-pressure chronic ulcer of right heel and midfoot with fat layer exposed; E11.618 Type 2 diabetes mellitus with other diabetic arthropathy; E11.51 Type 2 diabetes mellitus with diabetic peripheral angiopathy without gangrene; I10 Essential (primary) hypertension ==

== ENCOUNTER → 2021-05-19 | Outpatient (CLI) | payer MEDICARE, OTHER | END | disposition home or self-care (01) | LOC: WCC 07:18 | PROC: 0JBQ0ZZ Excision of Right Foot Subcutaneous Tissue and Fascia, Open Approach (ICD-10-PCS; principal; 2021-05-19) | DX: E11.621 Type 2 diabetes mellitus with foot ulcer (principal); L97.415 Non-pressure chronic ulcer of right heel and midfoot with muscle involvement without evidence of necrosis; E11.618 Type 2 diabetes mellitus with other diabetic arthropathy; E11.40 Type 2 diabetes mellitus with diabetic neuropathy, unspecified; E11.69 Type 2 diabetes mellitus with other specified complication; M86.8X9 Other osteomyelitis, unspecified sites; E11.51 Type 2 diabetes mellitus with diabetic peripheral angiopathy without gangrene; I25.2 Old myocardial infarction; I10 Essential (primary) hypertension; M19.90 Unspecified osteoarthritis, unspecified site; Z79.2 Long term (current) use of antibiotics; Z79.4 Long term (current) use of insulin; Z79.84 Long term (current) use of oral hypoglycemic drugs; Z79.02 Long term (current) use of antithrombotics/antiplatelets; Z79.51 Long term (current) use of inhaled steroids; Z79.891 Long term (current) use of opiate analgesic; Z79.899 Other long term (current) drug therapy ==

== ENCOUNTER → 2021-05-26 | Outpatient (CLI) | payer MEDICARE, OTHER | LOC: WCC 07:24 | DX: E11.621 Type 2 diabetes mellitus with foot ulcer (principal); L97.512 Non-pressure chronic ulcer of other part of right foot with fat layer exposed; E11.610 Type 2 diabetes mellitus with diabetic neuropathic arthropathy; I10 Essential (primary) hypertension; E11.51 Type 2 diabetes mellitus with diabetic peripheral angiopathy without gangrene; Z89.412 Acquired absence of left great toe; Z79.84 Long term (current) use of oral hypoglycemic drugs; Z79.4 Long term (current) use of insulin ==

== ENCOUNTER → 2021-06-01 | Outpatient (CLI) | payer MEDICARE, OTHER | END | disposition home or self-care (01) | LOC: WCC 07:22 | PROC: 0JBQ0ZZ Excision of Right Foot Subcutaneous Tissue and Fascia, Open Approach (ICD-10-PCS; principal; 2021-06-01) | DX: E11.621 Type 2 diabetes mellitus with foot ulcer (principal); L97.412 Non-pressure chronic ulcer of right heel and midfoot with fat layer exposed; E11.618 Type 2 diabetes mellitus with other diabetic arthropathy; E11.51 Type 2 diabetes mellitus with diabetic peripheral angiopathy without gangrene; E11.40 Type 2 diabetes mellitus with diabetic neuropathy, unspecified; E11.69 Type 2 diabetes mellitus with other specified complication; M86.9 Osteomyelitis, unspecified; I10 Essential (primary) hypertension; I25.2 Old myocardial infarction; M19.90 Unspecified osteoarthritis, unspecified site; Z89.412 Acquired absence of left great toe; Z79.84 Long term (current) use of oral hypoglycemic drugs; Z79.4 Long term (current) use of insulin; Z79.891 Long term (current) use of opiate analgesic; Z79.51 Long term (current) use of inhaled steroids; Z79.02 Long term (current) use of antithrombotics/antiplatelets; Z79.899 Other long term (current) drug therapy ==

== ENCOUNTER → 2021-06-09 | Outpatient (CLI) | payer MEDICARE, OTHER | LOC: WCC 07:45 | DX: E11.621 Type 2 diabetes mellitus with foot ulcer (principal); L97.522 Non-pressure chronic ulcer of other part of left foot with fat layer exposed; E11.610 Type 2 diabetes mellitus with diabetic neuropathic arthropathy; I10 Essential (primary) hypertension; E11.51 Type 2 diabetes mellitus with diabetic peripheral angiopathy without gangrene; Z79.84 Long term (current) use of oral hypoglycemic drugs; Z79.4 Long term (current) use of insulin ==

== ENCOUNTER → 2021-06-30 | Outpatient (CLI) | payer MEDICARE, OTHER | LOC: WCC 07:33 | DX: E11.621 Type 2 diabetes mellitus with foot ulcer (principal); L97.412 Non-pressure chronic ulcer of right heel and midfoot with fat layer exposed; E11.618 Type 2 diabetes mellitus with other diabetic arthropathy; I10 Essential (primary) hypertension; E11.51 Type 2 diabetes mellitus with diabetic peripheral angiopathy without gangrene; Z79.4 Long term (current) use of insulin; Z79.01 Long term (current) use of anticoagulants; Z79.899 Other long term (current) drug therapy ==

== ENCOUNTER → 2021-07-06 | Outpatient (CLI) | payer MEDICARE, OTHER | LOC: WCC 07:32 | DX: E11.621 Type 2 diabetes mellitus with foot ulcer (principal); L97.415 Non-pressure chronic ulcer of right heel and midfoot with muscle involvement without evidence of necrosis; E11.618 Type 2 diabetes mellitus with other diabetic arthropathy; I10 Essential (primary) hypertension; I73.9 Peripheral vascular disease, unspecified; I25.2 Old myocardial infarction; M19.90 Unspecified osteoarthritis, unspecified site; E11.40 Type 2 diabetes mellitus with diabetic neuropathy, unspecified; Z79.02 Long term (current) use of antithrombotics/antiplatelets | CPT/HCPCS: 87070; 87077; 87186; 87205 ==

== ENCOUNTER → 2021-07-11 | Outpatient (CLI) | payer MEDICARE, OTHER ==
[2021-07-11 13:02] LABS: HEMOGLOBIN 14.8 gm/dl (14.0-17.5); RED BLOOD COUNT 5.41 M/UL (4.20-5.50); WHITE BLOOD COUNT 8.7 K/UL (4.5-11.0)
[2021-07-12 07:10] LABS: ESTIM. AVG GLU (EAG) 169 mg/dL (.); HEMOGLOBIN A1C 7.5 % (4.8-5.6)
[2021-07-12 08:15] LABS: A/G RATIO 1.6 (1.2-2.2); ALKALINE PHOSPHATASE, S 116 IU/L (44-121); ALT (SGPT) 29 IU/L (0-44); AST (SGOT) 14 IU/L (0-40); BILIRUBIN, TOTAL 0.5 mg/dL (0.0-1.2); BUN 17 mg/dL (6-24); BUN/CREATININE RATIO 21 (9-20); CALCIUM, SERUM 9.6 mg/dL (8.7-10.2); CARBON DIOXIDE, TOTAL 25 mmol/L (20-29); CHLORIDE, SERUM 99 mmol/L (96-106); CHOLESTEROL, TOTAL 136 mg/dL (100-199); CREATININE, SERUM 0.82 mg/dL (0.76-1.27); EGFR IF AFRICN AM 114 (>59); EGFR IF NONAFRICN AM 99 (>59); GLOBULIN, TOTAL 2.7 g/dL (1.5-4.5); GLUCOSE, SERUM 228 mg/dL (65-99); HDL CHOLESTEROL 33 mg/dL (>39); LDL CHOLESTEROL CALC 47 mg/dL (0-99); LDL/HDL RATIO 1.4 ratio (0.0-3.6); PROTEIN, TOTAL, SERUM 7.1 g/dL (6.0-8.5); SODIUM, SERUM 137 mmol/L (134-144); T. CHOL/HDL RATIO 4.1 ratio (0.0-5.0); TRIGLYCERIDES 377 mg/dL (0-149); VITAMIN D, 25-HYDROXY 53.5 ng/mL (30.0-100.0)
[2021-07-12 10:15] LABS: CREATININE, URINE 70.9 mg/dL (Not Estab.)
== END ==
LOC: LAB 11:03
PROVIDERS: Nurse Practitioner Family
DX: E11.9 Type 2 diabetes mellitus without complications (principal); I25.10 Atherosclerotic heart disease of native coronary artery without angina pectoris; I10 Essential (primary) hypertension; E78.1 Pure hyperglyceridemia; K21.9 Gastro-esophageal reflux disease without esophagitis; M25.50 Pain in unspecified joint; J30.9 Allergic rhinitis, unspecified; E53.8 Deficiency of other specified B group vitamins; E55.9 Vitamin D deficiency, unspecified; Z00.00 Encounter for general adult medical examination without abnormal findings
CPT/HCPCS: 36415; 80053; 80061; 81001; 82043; 82570; 82607; 83036; 84439; 84443; 85025

== ENCOUNTER → 2021-07-13 | Outpatient (CLI) | payer MEDICARE, OTHER | LOC: RAD 12:52 | DX: R31.9 Hematuria, unspecified (principal); R14.3 Flatulence | CPT/HCPCS: 74018 ==

== ENCOUNTER → 2021-07-31 | Outpatient (CLI) | payer MEDICARE, OTHER | LOC: WCC 07:57 | DX: E11.621 Type 2 diabetes mellitus with foot ulcer (principal); L97.415 Non-pressure chronic ulcer of right heel and midfoot with muscle involvement without evidence of necrosis; E11.618 Type 2 diabetes mellitus with other diabetic arthropathy; I10 Essential (primary) hypertension; E11.51 Type 2 diabetes mellitus with diabetic peripheral angiopathy without gangrene; Z79.4 Long term (current) use of insulin; Z79.899 Other long term (current) drug therapy ==

== ENCOUNTER → 2021-08-04 | Outpatient (CLI) | payer MEDICARE, OTHER | END | disposition home or self-care (01) | LOC: WCC 08:15 | DX: E11.621 Type 2 diabetes mellitus with foot ulcer (principal); L97.415 Non-pressure chronic ulcer of right heel and midfoot with muscle involvement without evidence of necrosis; E11.618 Type 2 diabetes mellitus with other diabetic arthropathy; I10 Essential (primary) hypertension; I73.9 Peripheral vascular disease, unspecified; Z79.4 Long term (current) use of insulin; Z79.899 Other long term (current) drug therapy ==

== ENCOUNTER → 2021-08-09 | Outpatient (CLI) | payer MEDICARE, OTHER | END | disposition home or self-care (01) | LOC: WCC 07:22 | DX: E11.621 Type 2 diabetes mellitus with foot ulcer (principal); L97.415 Non-pressure chronic ulcer of right heel and midfoot with muscle involvement without evidence of necrosis; E11.618 Type 2 diabetes mellitus with other diabetic arthropathy; I10 Essential (primary) hypertension; I73.9 Peripheral vascular disease, unspecified; Z79.4 Long term (current) use of insulin; Z79.899 Other long term (current) drug therapy ==

== ENCOUNTER → 2021-08-16 | Outpatient (CLI) | payer MEDICARE, OTHER | LOC: WCC 07:37 | DX: E11.621 Type 2 diabetes mellitus with foot ulcer (principal); L97.512 Non-pressure chronic ulcer of other part of right foot with fat layer exposed; Z89.412 Acquired absence of left great toe; E11.69 Type 2 diabetes mellitus with other specified complication; M86.9 Osteomyelitis, unspecified; Z79.84 Long term (current) use of oral hypoglycemic drugs; Z79.4 Long term (current) use of insulin; E11.610 Type 2 diabetes mellitus with diabetic neuropathic arthropathy; E11.51 Type 2 diabetes mellitus with diabetic peripheral angiopathy without gangrene; I10 Essential (primary) hypertension ==

== ENCOUNTER → 2021-09-01 | Outpatient (CLI) | payer MEDICARE, OTHER | LOC: WCC 07:24 | DX: E11.621 Type 2 diabetes mellitus with foot ulcer (principal); L97.412 Non-pressure chronic ulcer of right heel and midfoot with fat layer exposed; E11.618 Type 2 diabetes mellitus with other diabetic arthropathy; I10 Essential (primary) hypertension; I73.9 Peripheral vascular disease, unspecified; I25.2 Old myocardial infarction; M19.90 Unspecified osteoarthritis, unspecified site; E11.40 Type 2 diabetes mellitus with diabetic neuropathy, unspecified; Z95.828 Presence of other vascular implants and grafts; Z89.422 Acquired absence of other left toe(s); Z79.02 Long term (current) use of antithrombotics/antiplatelets ==

== ENCOUNTER → 2021-09-15 | Outpatient (CLI) | payer MEDICARE, OTHER | LOC: WCC 07:20 | DX: E11.621 Type 2 diabetes mellitus with foot ulcer (principal); L97.415 Non-pressure chronic ulcer of right heel and midfoot with muscle involvement without evidence of necrosis; E11.618 Type 2 diabetes mellitus with other diabetic arthropathy; I10 Essential (primary) hypertension; I73.9 Peripheral vascular disease, unspecified; I25.2 Old myocardial infarction; M19.90 Unspecified osteoarthritis, unspecified site; E11.40 Type 2 diabetes mellitus with diabetic neuropathy, unspecified; Z95.5 Presence of coronary angioplasty implant and graft; Z89.429 Acquired absence of other toe(s), unspecified side; Z79.02 Long term (current) use of antithrombotics/antiplatelets ==

== ENCOUNTER → 2021-09-22 | Outpatient (CLI) | payer MEDICARE, OTHER | LOC: WCC 07:39 | DX: E11.621 Type 2 diabetes mellitus with foot ulcer (principal); L97.415 Non-pressure chronic ulcer of right heel and midfoot with muscle involvement without evidence of necrosis; E11.618 Type 2 diabetes mellitus with other diabetic arthropathy; I10 Essential (primary) hypertension; I73.9 Peripheral vascular disease, unspecified; I25.2 Old myocardial infarction; M19.90 Unspecified osteoarthritis, unspecified site; E11.40 Type 2 diabetes mellitus with diabetic neuropathy, unspecified; Z95.828 Presence of other vascular implants and grafts; Z95.5 Presence of coronary angioplasty implant and graft; Z89.421 Acquired absence of other right toe(s); Z79.02 Long term (current) use of antithrombotics/antiplatelets ==

== ENCOUNTER → 2021-10-13 | Outpatient (CLI) | payer MEDICARE, OTHER | LOC: WCC 08:03 | DX: E11.621 Type 2 diabetes mellitus with foot ulcer (principal); L97.415 Non-pressure chronic ulcer of right heel and midfoot with muscle involvement without evidence of necrosis; E11.618 Type 2 diabetes mellitus with other diabetic arthropathy; I10 Essential (primary) hypertension; E11.51 Type 2 diabetes mellitus with diabetic peripheral angiopathy without gangrene; Z79.4 Long term (current) use of insulin; Z79.02 Long term (current) use of antithrombotics/antiplatelets; Z79.899 Other long term (current) drug therapy ==

== ENCOUNTER → 2021-10-20 | Outpatient (CLI) | payer MEDICARE, OTHER | LOC: WCC 07:43 | DX: E11.621 Type 2 diabetes mellitus with foot ulcer (principal); L97.515 Non-pressure chronic ulcer of other part of right foot with muscle involvement without evidence of necrosis; E11.618 Type 2 diabetes mellitus with other diabetic arthropathy; I25.2 Old myocardial infarction; Z95.5 Presence of coronary angioplasty implant and graft; Z89.429 Acquired absence of other toe(s), unspecified side; Z79.84 Long term (current) use of oral hypoglycemic drugs; Z79.4 Long term (current) use of insulin ==

== ENCOUNTER → 2021-11-10 | Outpatient (CLI) | payer MEDICARE, OTHER | LOC: WCC 06:52 | DX: E11.621 Type 2 diabetes mellitus with foot ulcer (principal); L97.412 Non-pressure chronic ulcer of right heel and midfoot with fat layer exposed; E11.618 Type 2 diabetes mellitus with other diabetic arthropathy; I10 Essential (primary) hypertension; E11.51 Type 2 diabetes mellitus with diabetic peripheral angiopathy without gangrene; Z79.84 Long term (current) use of oral hypoglycemic drugs; Z79.02 Long term (current) use of antithrombotics/antiplatelets; Z79.899 Other long term (current) drug therapy | CPT/HCPCS: 87070; 87077; 87186; 87205 ==

== ENCOUNTER → 2021-11-27 | Outpatient (CLI) | payer MEDICARE, OTHER | LOC: WCC 07:25 | DX: E11.621 Type 2 diabetes mellitus with foot ulcer (principal); L97.415 Non-pressure chronic ulcer of right heel and midfoot with muscle involvement without evidence of necrosis; E11.618 Type 2 diabetes mellitus with other diabetic arthropathy; I10 Essential (primary) hypertension; E11.51 Type 2 diabetes mellitus with diabetic peripheral angiopathy without gangrene; Z79.4 Long term (current) use of insulin; Z79.899 Other long term (current) drug therapy ==

== ENCOUNTER → 2021-12-04 | Outpatient (CLI) | payer MEDICARE, OTHER ==
[2021-12-04 10:48] LABS: BUN/CREATININE RATIO 23 (0-10)
== END ==
LOC: LAB 09:25
PROVIDERS: Nurse Practitioner Family
DX: R25.2 Cramp and spasm (principal); E11.621 Type 2 diabetes mellitus with foot ulcer; L97.509 Non-pressure chronic ulcer of other part of unspecified foot with unspecified severity; R93.6 Abnormal findings on diagnostic imaging of limbs
CPT/HCPCS: 36415; 73630; 80053; 83735

== ENCOUNTER → 2021-12-04 | Outpatient (CLI) | payer MEDICARE, OTHER | END | disposition home or self-care (01) | LOC: WCC 07:09 | DX: E11.621 Type 2 diabetes mellitus with foot ulcer (principal); L97.415 Non-pressure chronic ulcer of right heel and midfoot with muscle involvement without evidence of necrosis; E11.618 Type 2 diabetes mellitus with other diabetic arthropathy; E11.51 Type 2 diabetes mellitus with diabetic peripheral angiopathy without gangrene; I10 Essential (primary) hypertension; R25.2 Cramp and spasm ==

== ENCOUNTER → 2021-12-11 | Outpatient (CLI) | payer MEDICARE, OTHER | END | disposition home or self-care (01) | LOC: WCC 07:31 | DX: E11.621 Type 2 diabetes mellitus with foot ulcer (principal); L97.415 Non-pressure chronic ulcer of right heel and midfoot with muscle involvement without evidence of necrosis; E11.618 Type 2 diabetes mellitus with other diabetic arthropathy; E11.51 Type 2 diabetes mellitus with diabetic peripheral angiopathy without gangrene; R25.2 Cramp and spasm; I10 Essential (primary) hypertension; Z79.84 Long term (current) use of oral hypoglycemic drugs; Z79.899 Other long term (current) drug therapy ==

== ENCOUNTER → 2021-12-19 | Outpatient (CLI) | payer MEDICARE, OTHER | END | disposition home or self-care (01) | LOC: WCC 07:28 | DX: E11.621 Type 2 diabetes mellitus with foot ulcer (principal); L97.415 Non-pressure chronic ulcer of right heel and midfoot with muscle involvement without evidence of necrosis; E11.618 Type 2 diabetes mellitus with other diabetic arthropathy; E11.51 Type 2 diabetes mellitus with diabetic peripheral angiopathy without gangrene; I10 Essential (primary) hypertension; R25.2 Cramp and spasm; Z79.84 Long term (current) use of oral hypoglycemic drugs; Z79.899 Other long term (current) drug therapy ==

== ENCOUNTER → 2022-01-03 | Outpatient (CLI) | payer MEDICARE, OTHER | END | disposition home or self-care (01) | LOC: WCC 07:10 | DX: E11.621 Type 2 diabetes mellitus with foot ulcer (principal); L97.415 Non-pressure chronic ulcer of right heel and midfoot with muscle involvement without evidence of necrosis; E11.618 Type 2 diabetes mellitus with other diabetic arthropathy; E11.51 Type 2 diabetes mellitus with diabetic peripheral angiopathy without gangrene; E11.69 Type 2 diabetes mellitus with other specified complication; M86.071 Acute hematogenous osteomyelitis, right ankle and foot; I10 Essential (primary) hypertension; R25.2 Cramp and spasm; Z79.84 Long term (current) use of oral hypoglycemic drugs; Z79.899 Other long term (current) drug therapy | CPT/HCPCS: 87070; 87077; 87186; 87205 ==

== ENCOUNTER → 2022-01-11 | Outpatient (CLI) | payer MEDICARE, OTHER ==
[2022-01-11 12:57] LABS: HEMOGLOBIN 13.6 gm/dl (14.0-17.5); RED BLOOD COUNT 4.94 M/UL (4.20-5.50); WHITE BLOOD COUNT 7.3 K/UL (4.5-11.0)
[2022-01-11 13:07] LABS: BUN/CREATININE RATIO 23 (0-10)
[2022-01-12 10:15] LABS: CREATININE, URINE 93.8 mg/dL (Not Estab.)
== END ==
LOC: LAB 12:06
PROVIDERS: Nurse Practitioner Family
DX: E11.42 Type 2 diabetes mellitus with diabetic polyneuropathy (principal); E11.621 Type 2 diabetes mellitus with foot ulcer; L97.509 Non-pressure chronic ulcer of other part of unspecified foot with unspecified severity; E53.8 Deficiency of other specified B group vitamins; E55.9 Vitamin D deficiency, unspecified; R53.83 Other fatigue
CPT/HCPCS: 36415; 80053; 80061; 81001; 82043; 82570; 82607; 83036; 84439; 84443; 85025; 85652; 86140

== ENCOUNTER → 2022-01-11 | Outpatient (CLI) | payer MEDICARE, OTHER | LOC: KOH-I 09:00 | DX: E11.621 Type 2 diabetes mellitus with foot ulcer (principal); L97.419 Non-pressure chronic ulcer of right heel and midfoot with unspecified severity | CPT/HCPCS: 73718 ==

== ENCOUNTER → 2022-01-11 | Outpatient (CLI) | payer MEDICARE, OTHER | END | disposition home or self-care (01) | LOC: WCC 08:12 | PROC: 0KBV0ZZ Excision of Right Foot Muscle, Open Approach (ICD-10-PCS; principal; 2022-01-11) | DX: E11.621 Type 2 diabetes mellitus with foot ulcer (principal); L97.415 Non-pressure chronic ulcer of right heel and midfoot with muscle involvement without evidence of necrosis; E11.618 Type 2 diabetes mellitus with other diabetic arthropathy; E11.51 Type 2 diabetes mellitus with diabetic peripheral angiopathy without gangrene; M86.071 Acute hematogenous osteomyelitis, right ankle and foot; I10 Essential (primary) hypertension; M19.90 Unspecified osteoarthritis, unspecified site; I25.2 Old myocardial infarction; Z79.02 Long term (current) use of antithrombotics/antiplatelets; Z79.84 Long term (current) use of oral hypoglycemic drugs; Z79.899 Other long term (current) drug therapy ==

== ENCOUNTER → 2022-01-16 | Outpatient (CLI) | payer MEDICARE, OTHER ==
[~2022-01-16] VITALS: Ht 182.9 cm; Wt 108.9 kg
== END ==
LOC: OPSV 11:48
DX: Z45.2 Encounter for adjustment and management of vascular access device (principal)
CPT/HCPCS: 71045; 96365; C1751; J1335

== ENCOUNTER → 2022-01-17 | Outpatient (CLI) | payer MEDICARE, OTHER | LOC: OPSV 14:47 | DX: E11.621 Type 2 diabetes mellitus with foot ulcer (principal); M86.071 Acute hematogenous osteomyelitis, right ankle and foot; L97.915 Non-pressure chronic ulcer of unspecified part of right lower leg with muscle involvement without evidence of necrosis | CPT/HCPCS: G0463 ==

== ENCOUNTER → 2022-01-26 | Outpatient (CLI) | payer MEDICARE, OTHER ==
[2022-01-26 09:25] LABS: HEMOGLOBIN 13.8 gm/dl (14.0-17.5); RED BLOOD COUNT 4.98 M/UL (4.20-5.50); WHITE BLOOD COUNT 7.7 K/UL (4.5-11.0)
[2022-01-26 09:39] LABS: BUN/CREATININE RATIO 20 (0-10)
== END | disposition home or self-care (01) ==
LOC: OPSV 08:00
PROVIDERS: Nurse Practitioner Family
DX: E11.621 Type 2 diabetes mellitus with foot ulcer (principal); L97.919 Non-pressure chronic ulcer of unspecified part of right lower leg with unspecified severity; E11.69 Type 2 diabetes mellitus with other specified complication; M86.071 Acute hematogenous osteomyelitis, right ankle and foot; E11.51 Type 2 diabetes mellitus with diabetic peripheral angiopathy without gangrene
CPT/HCPCS: 80053; 85027; 85652; 86140

== ENCOUNTER → 2022-01-26 | Outpatient (CLI) | payer MEDICARE, OTHER | LOC: WCC 07:27 | DX: E11.621 Type 2 diabetes mellitus with foot ulcer (principal); L97.415 Non-pressure chronic ulcer of right heel and midfoot with muscle involvement without evidence of necrosis; E11.618 Type 2 diabetes mellitus with other diabetic arthropathy; E11.69 Type 2 diabetes mellitus with other specified complication; M86.071 Acute hematogenous osteomyelitis, right ankle and foot; I10 Essential (primary) hypertension; E11.51 Type 2 diabetes mellitus with diabetic peripheral angiopathy without gangrene; R25.2 Cramp and spasm; Z79.4 Long term (current) use of insulin; Z79.02 Long term (current) use of antithrombotics/antiplatelets; Z79.899 Other long term (current) drug therapy ==

== ENCOUNTER → 2022-02-02 | Outpatient (CLI) | payer MEDICARE, OTHER | END | disposition home or self-care (01) | LOC: WCC 06:46 | PROC: 0KBV0ZZ Excision of Right Foot Muscle, Open Approach (ICD-10-PCS; principal; 2022-02-02) | DX: L97.815 Non-pressure chronic ulcer of other part of right lower leg with muscle involvement without evidence of necrosis (principal) ==

== ENCOUNTER → 2022-02-02 | Outpatient (CLI) | payer MEDICARE, OTHER ==
[2022-02-02 08:31] LABS: HEMOGLOBIN 13.5 gm/dl (14.0-17.5); RED BLOOD COUNT 4.85 M/UL (4.20-5.50); WHITE BLOOD COUNT 8.1 K/UL (4.5-11.0)
[2022-02-02 09:07] LABS: BUN/CREATININE RATIO 28 (0-10)
== END ==
LOC: OPSV 08:00
PROVIDERS: Nurse Practitioner Family
DX: E11.621 Type 2 diabetes mellitus with foot ulcer (principal); E11.69 Type 2 diabetes mellitus with other specified complication; L97.515 Non-pressure chronic ulcer of other part of right foot with muscle involvement without evidence of necrosis; M86.071 Acute hematogenous osteomyelitis, right ankle and foot
CPT/HCPCS: 80053; 85027; 85652; 86140

== ENCOUNTER → 2022-02-09 | Outpatient (CLI) | payer MEDICARE, OTHER ==
[2022-02-09 09:28] LABS: HEMOGLOBIN 13.5 gm/dl (14.0-17.5); RED BLOOD COUNT 4.9 M/UL (4.20-5.50); WHITE BLOOD COUNT 9.3 K/UL (4.5-11.0)
[2022-02-09 09:41] LABS: BUN/CREATININE RATIO 27 (0-10)
== END ==
LOC: OPSV 08:00
PROVIDERS: Nurse Practitioner Family
DX: M86.071 Acute hematogenous osteomyelitis, right ankle and foot (principal); E11.621 Type 2 diabetes mellitus with foot ulcer
CPT/HCPCS: 80053; 85027; 85652; 86140

== ENCOUNTER 2022-02-16 14:35 | Emergency (ER) | payer MEDICARE, OTHER ==
[2022-02-16 16:05] LABS: ADENOVIRUS F 40/41 Not Detected (Negative); ASTROVIRUS Not Detected (Negative); CAMPYLOBACTER Not Detected (Negative); CRYPTOSPORIDIUM Not Detected (Negative); E.COLI 0157 Not Detected (Negative); ENTAMOEBA HISTOLYTICA Not Detected (Negative); ENTEROAGGREGATIVE E.COLI (EAEC Not Detected (Negative); ENTEROPATHOGENIC E.COLI (EPEC) Not Detected (Negative); ENTEROTOXIGENIC E.COLI (ETEC) Not Detected (Negative); GIARDIA LAMBLIA Not Detected (Negative); NOROVIRUS GI/GII Not Detected (Negative); PLESIOMONAS SHIGELLOIDES Not Detected (Negative); ROTOVIRUS A Not Detected (Negative); SALMONELLA Not Detected (Negative); SAPOVIRUS Not Detected (Negative); SHIG/ENTEROINVAS.ECOLI (EIEC) Not Detected (Negative); SHIGA-LIK TOX.PRO.E.COLI (STEC Not Detected (Negative); VIBRIO Not Detected (Negative); VIBRIO CHOLERAE Not Detected (Negative); YERSINIA ENTEROCOLITICA Not Detected (Negative)
[2022-02-16 17:41] LABS: HEMOGLOBIN 13.3 gm/dl (14.0-17.5); RED BLOOD COUNT 4.77 M/UL (4.20-5.50); WHITE BLOOD COUNT 12.3 K/UL (4.5-11.0)
[2022-02-16 17:59] LABS: BUN/CREATININE RATIO 24 (0-10)
[2022-02-16 19:19] LABS: CLOSTRIDIUM DIFFICILE TOX A/B DETECTED (Negative)
[2022-02-16] MEDS ORDERED: ZOFRAN ODT 4 MG4 MG PO (20:22)
[2022-02-16] MEDS ORDERED: VANCOCIN 125 M125 MG PO (20:22)
[2022-02-16] MEDS ORDERED: BENTYL 20MG TAB20 MG PO (20:22)
== END 2022-02-16 20:37 | disposition home or self-care (01) ==
LOC: ER1 14:35
PROVIDERS: Nurse Practitioner Family; Physician Assistant Medical
DX: A04.72 Enterocolitis due to Clostridium difficile, not specified as recurrent (principal); I25.2 Old myocardial infarction; F17.210 Nicotine dependence, cigarettes, uncomplicated; E11.9 Type 2 diabetes mellitus without complications; Z79.82 Long term (current) use of aspirin; Z79.02 Long term (current) use of antithrombotics/antiplatelets; Z95.5 Presence of coronary angioplasty implant and graft
CPT/HCPCS: 80053; 83690; 85025; 87177; 87209; 87507; 96360; 99284

== ENCOUNTER → 2022-02-19 | Outpatient (CLI) | payer MEDICARE, OTHER ==
[~2022-02-19] MED LIST changes: +BENTYL 20MG TAB20 MG PO; +VANCOCIN 125 M125 MG PO; +ZOFRAN ODT 4 MG4 MG PO
[2022-02-19 09:04] LABS: HEMOGLOBIN 13.2 gm/dl (14.0-17.5); RED BLOOD COUNT 4.8 M/UL (4.20-5.50)
[2022-02-19 09:26] LABS: BUN/CREATININE RATIO 20 (0-10)
== END ==
LOC: OPSV 02-16 08:00
PROVIDERS: Nurse Practitioner Family
DX: M86.071 Acute hematogenous osteomyelitis, right ankle and foot (principal); L97.515 Non-pressure chronic ulcer of other part of right foot with muscle involvement without evidence of necrosis; E11.621 Type 2 diabetes mellitus with foot ulcer
CPT/HCPCS: 80053; 85027; 85652; 86140

== ENCOUNTER → 2022-02-26 | Outpatient (CLI) | payer MEDICARE, OTHER ==
[2022-02-26 08:53] LABS: HEMOGLOBIN 13.2 gm/dl (14.0-17.5); RED BLOOD COUNT 4.77 M/UL (4.20-5.50); WHITE BLOOD COUNT 8.8 K/UL (4.5-11.0)
[2022-02-26 09:28] LABS: BUN/CREATININE RATIO 26 (0-10)
== END ==
LOC: OPSV 08:00
PROVIDERS: Nurse Practitioner Family
DX: M86.071 Acute hematogenous osteomyelitis, right ankle and foot (principal); L97.515 Non-pressure chronic ulcer of other part of right foot with muscle involvement without evidence of necrosis; E11.621 Type 2 diabetes mellitus with foot ulcer
CPT/HCPCS: 80053; 85027; 85652; 86140

== ENCOUNTER → 2022-02-26 | Outpatient (CLI) | payer MEDICARE, OTHER | END | disposition home or self-care (01) | LOC: WCC 07:16 | DX: E11.621 Type 2 diabetes mellitus with foot ulcer (principal); L97.415 Non-pressure chronic ulcer of right heel and midfoot with muscle involvement without evidence of necrosis; E11.618 Type 2 diabetes mellitus with other diabetic arthropathy; E11.51 Type 2 diabetes mellitus with diabetic peripheral angiopathy without gangrene; I10 Essential (primary) hypertension; E11.69 Type 2 diabetes mellitus with other specified complication; M86.071 Acute hematogenous osteomyelitis, right ankle and foot; R25.2 Cramp and spasm; Z79.84 Long term (current) use of oral hypoglycemic drugs; Z79.899 Other long term (current) drug therapy ==

== ENCOUNTER → 2022-03-05 | Outpatient (CLI) | payer MEDICARE, OTHER ==
[2022-03-05 09:12] LABS: HEMOGLOBIN 12.9 gm/dl (14.0-17.5); RED BLOOD COUNT 4.72 M/UL (4.20-5.50); WHITE BLOOD COUNT 6.9 K/UL (4.5-11.0)
[2022-03-05 10:03] LABS: BUN/CREATININE RATIO 22 (0-10)
== END | disposition home or self-care (01) ==
LOC: OPSV 08:00
PROVIDERS: Nurse Practitioner Family
DX: M86.071 Acute hematogenous osteomyelitis, right ankle and foot (principal); E11.621 Type 2 diabetes mellitus with foot ulcer
CPT/HCPCS: 80053; 85027; 85652; 86140

== ENCOUNTER → 2022-03-05 | Outpatient (CLI) | payer MEDICARE, OTHER | END | disposition home or self-care (01) | LOC: WCC 06:41 | DX: E11.621 Type 2 diabetes mellitus with foot ulcer (principal); L97.415 Non-pressure chronic ulcer of right heel and midfoot with muscle involvement without evidence of necrosis; E11.618 Type 2 diabetes mellitus with other diabetic arthropathy; E11.51 Type 2 diabetes mellitus with diabetic peripheral angiopathy without gangrene; I10 Essential (primary) hypertension; E11.69 Type 2 diabetes mellitus with other specified complication; M86.071 Acute hematogenous osteomyelitis, right ankle and foot; R25.2 Cramp and spasm; Z79.4 Long term (current) use of insulin; Z79.899 Other long term (current) drug therapy ==

== ENCOUNTER → 2022-03-13 | Outpatient (CLI) | payer MEDICARE, OTHER | LOC: WCC 07:16 | DX: E11.621 Type 2 diabetes mellitus with foot ulcer (principal); L97.415 Non-pressure chronic ulcer of right heel and midfoot with muscle involvement without evidence of necrosis; E11.618 Type 2 diabetes mellitus with other diabetic arthropathy; I10 Essential (primary) hypertension; E11.51 Type 2 diabetes mellitus with diabetic peripheral angiopathy without gangrene; E11.69 Type 2 diabetes mellitus with other specified complication; M86.071 Acute hematogenous osteomyelitis, right ankle and foot; R25.2 Cramp and spasm; Z79.4 Long term (current) use of insulin ==

== ENCOUNTER → 2022-03-20 | Outpatient (CLI) | payer MEDICARE, OTHER | LOC: WCC 07:58 | DX: E11.621 Type 2 diabetes mellitus with foot ulcer (principal); L97.415 Non-pressure chronic ulcer of right heel and midfoot with muscle involvement without evidence of necrosis; E11.618 Type 2 diabetes mellitus with other diabetic arthropathy; I10 Essential (primary) hypertension; R25.2 Cramp and spasm; E11.51 Type 2 diabetes mellitus with diabetic peripheral angiopathy without gangrene; E11.69 Type 2 diabetes mellitus with other specified complication; M86.071 Acute hematogenous osteomyelitis, right ankle and foot; Z79.4 Long term (current) use of insulin; Z79.02 Long term (current) use of antithrombotics/antiplatelets; Z79.899 Other long term (current) drug therapy ==

== ENCOUNTER → 2022-03-27 | Outpatient (CLI) | payer MEDICARE, OTHER | END | disposition home or self-care (01) | LOC: WCC 07:20 | DX: E11.621 Type 2 diabetes mellitus with foot ulcer (principal); L97.415 Non-pressure chronic ulcer of right heel and midfoot with muscle involvement without evidence of necrosis; E11.618 Type 2 diabetes mellitus with other diabetic arthropathy; I10 Essential (primary) hypertension; E11.51 Type 2 diabetes mellitus with diabetic peripheral angiopathy without gangrene; E11.69 Type 2 diabetes mellitus with other specified complication; M86.071 Acute hematogenous osteomyelitis, right ankle and foot; Z79.84 Long term (current) use of oral hypoglycemic drugs; Z79.899 Other long term (current) drug therapy ==

== ENCOUNTER → 2022-04-03 | Outpatient (CLI) | payer MEDICARE, OTHER | END | disposition home or self-care (01) | LOC: WCC 07:31 | DX: E11.621 Type 2 diabetes mellitus with foot ulcer (principal); L97.415 Non-pressure chronic ulcer of right heel and midfoot with muscle involvement without evidence of necrosis; E11.618 Type 2 diabetes mellitus with other diabetic arthropathy; E11.51 Type 2 diabetes mellitus with diabetic peripheral angiopathy without gangrene; E11.69 Type 2 diabetes mellitus with other specified complication; M86.071 Acute hematogenous osteomyelitis, right ankle and foot; I10 Essential (primary) hypertension; Z79.84 Long term (current) use of oral hypoglycemic drugs; Z79.899 Other long term (current) drug therapy ==

== ENCOUNTER → 2022-04-10 | Outpatient (CLI) | payer MEDICARE, OTHER | END | disposition home or self-care (01) | LOC: WCC 07:39 | DX: E11.621 Type 2 diabetes mellitus with foot ulcer (principal); L97.415 Non-pressure chronic ulcer of right heel and midfoot with muscle involvement without evidence of necrosis; E11.618 Type 2 diabetes mellitus with other diabetic arthropathy; E11.51 Type 2 diabetes mellitus with diabetic peripheral angiopathy without gangrene; I10 Essential (primary) hypertension; R25.2 Cramp and spasm; E11.69 Type 2 diabetes mellitus with other specified complication; M86.071 Acute hematogenous osteomyelitis, right ankle and foot; Z79.84 Long term (current) use of oral hypoglycemic drugs; Z79.899 Other long term (current) drug therapy ==

== ENCOUNTER → 2022-04-19 | Outpatient (CLI) | payer MEDICARE, OTHER | LOC: WCC 07:23 | DX: E11.621 Type 2 diabetes mellitus with foot ulcer (principal); L97.415 Non-pressure chronic ulcer of right heel and midfoot with muscle involvement without evidence of necrosis; E11.618 Type 2 diabetes mellitus with other diabetic arthropathy; E11.51 Type 2 diabetes mellitus with diabetic peripheral angiopathy without gangrene; E11.69 Type 2 diabetes mellitus with other specified complication; M86.071 Acute hematogenous osteomyelitis, right ankle and foot; I10 Essential (primary) hypertension; Z79.84 Long term (current) use of oral hypoglycemic drugs; Z79.899 Other long term (current) drug therapy ==